=== PATIENT | male | born 1955 | race Caucasian/White ===

== ENCOUNTER → 2018-05-17 | Outpatient (CLI) | payer BC ==
[2018-05-17 15:49] LABS: URIC ACID 7.5 MG/DL (2.6-7.2)
--- NOTE | 2018-05-17 16:02 | Diagnostic Imaging Report ---
INDICATION: Arthritis in the hands and wrists. TIME OF EXAMINATION: 03:53 p.m. EXAMINATION: Multiple views of bilateral hands and wrists were obtained. FINDINGS: The distal radius and ulna are intact bilaterally. Carpal bones appear to be intact. There are some degenerative changes at the first MCP joints bilaterally. The second through fifth MCP joints are unremarkable. Proximal interphalangeal joints also appear to be fairly well-maintained bilaterally. There are some osteoarthritic changes involving numerous DIP joints of the phalanges with joint space narrowing and marginal spurring. No definite osseous erosive changes are seen. No significant soft tissue swelling is identified. No soft tissue calcification is identified. 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 No definite erosive changes to suggest an inflammatory arthritides is seen. Dictated by: Dictated on workstation # [id number]
[2018-05-18 07:10] LABS: HEPATITIS C ANTIBODY C Non-Reactive (Non-Reactive)
== END ==
LOC: RAD 14:52
PROVIDERS: ATTEND Internal Medicine Rheumatology
DX: M19.032 Primary osteoarthritis, left wrist (principal); M19.031 Primary osteoarthritis, right wrist; M19.042 Primary osteoarthritis, left hand; M19.041 Primary osteoarthritis, right hand
CPT/HCPCS: 36415; 84550; 85652; 86141; 86480; 86704; 86706; 86803; 87340

== ENCOUNTER → 2018-06-14 | Outpatient (CLI) | payer BC ==
--- NOTE | 2018-06-14 14:54 | Diagnostic Imaging Report ---
INDICATION: Neck pain. TIME OF EXAM: 2:49 PM FINDINGS: AP, lateral and odontoid views of the cervical spine were obtained. Curvature of the cervical spine is normal. Minimal retrolisthesis of C2 on C3 is seen. There is anterior spurring of C6-7 level. Disc spaces are fairly well-maintained. Prevertebral tissues are normal. Odontoid is intact. No fractures are identified. IMPRESSION: Mild cervical spondylosis. No acute bony abnormality is detected. Dictated by: Dictated on workstation # [id number]
== END ==
LOC: RAD 14:11
PROVIDERS: ATTEND Internal Medicine Rheumatology
DX: M47.22 Other spondylosis with radiculopathy, cervical region (principal)
CPT/HCPCS: 72040

== ENCOUNTER → 2018-08-16 | Outpatient (CLI) | payer BC ==
[~2018-08-16] MED LIST: ASPI-586 PO; CHOL200085 PO; LISI40TA PO; OMEG-160 PO; PRD10T PO; TURM538C PO
[2018-08-16 12:09] LABS: BASOPHILS % (AUTO) 0 % (0-10); EOSINOPHILS % (AUTO) 0 % (0-10); HEMATOCRIT 44 % (40-54); HEMOGLOBIN 14.5 G/DL (13.3-17.7); LYMPHOCYTES # (AUTO) 0.8 X 10^3 (1.0-4.0); LYMPHOCYTES % (AUTO) 5 % (12-44); MEAN CORPUSCULAR HEMOGLOBIN 31 PG (25-34); MEAN CORPUSCULAR HGB CONC 33 G/DL (32-36); MEAN CORPUSCULAR VOLUME 94 FL (80-99); MEAN PLATELET VOLUME 10.1 FL (7.4-10.4); MONOCYTES # (AUTO) 1.2 X 10^3 (0.0-1.0); MONOCYTES % (AUTO) 8 % (0-12); NEUTROPHILS # (AUTO) 13.1 X 10^3 (1.8-7.8); NEUTROPHILS % (AUTO) 87 % (42-75); PLATELET COUNT 235 10^3/uL (130-400); RED BLOOD COUNT 4.66 10^6/uL (4.35-5.85); RED CELL DISTRIBUTION WIDTH 13.2 % (10.0-14.5)
[2018-08-16 12:28] LABS: ALANINE AMINOTRANSFERASE 20 U/L (0-55); ALBUMIN 4.8 GM/DL (3.2-4.5); ALKALINE PHOSPHATASE 50 U/L (40-136); AMYLASE 67 U/L (25-125); BILIRUBIN,TOTAL 0.6 MG/DL (0.1-1.0); BUN/CREATININE RATIO 17; CALCIUM 10.1 MG/DL (8.5-10.1); CARBON DIOXIDE 28 MMOL/L (21-32); CHLORIDE 99 MMOL/L (98-107); CREATININE SERUM 1.13 MG/DL (0.60-1.30); GFR ESTIMATED > 60; GLUCOSE 114 MG/DL (70-105); LIPASE 21 U/L (8-78); POTASSIUM 4.4 MMOL/L (3.6-5.0); SODIUM 136 MMOL/L (135-145); TOTAL PROTEIN 7.3 GM/DL (6.4-8.2)
[2018-08-16 12:59] LABS: BASOPHILS % (MANUAL) 1 %; EOSINOPHILS % (MANUAL) 0 %; LYMPHOCYTES % (MANUAL) 3 %; MONOCYTES % (MANUAL) 10 %; NEUTROPHILS % (MANUAL) 78 %
[2018-08-16 13:00] LABS: BAND NEUTROPHILS 4 %; REACTIVE LYMPHOCYTES 4 %; ROULEAUX SLIGHT; TOXIC GRANULATION/VACUOLAZATIO 1+
== END ==
LOC: LAB 11:48
PROVIDERS: ATTEND Nurse Practitioner Family
DX: R31.9 Hematuria, unspecified (principal); I10 Essential (primary) hypertension; Z79.899 Other long term (current) drug therapy
CPT/HCPCS: 36415; 80053; 82150; 83690; 85007; 85027; 86141

== ENCOUNTER → 2018-08-16 | Outpatient (CLI) | payer BC ==
--- NOTE | 2018-08-16 12:30 | Diagnostic Imaging Report ---
PROCEDURE: CT urinary tract, rule out kidney stone. TECHNIQUE: Multiple contiguous axial images were obtained through the abdomen and pelvis without the use of intravenous contrast. INDICATION: Kidney calculus and difficulty urinating. COMPARISON: No prior studies are available for comparison. FINDINGS: Imaging through the lung bases does show zones of linear parenchymal density of bilateral lower lobes as well as lingula and right middle lobe consistent with atelectasis or scarring. Coronary arterial calcifications are present. No discrete liver mass is seen. The gallbladder is unremarkable. No biliary duct dilatation is seen. The pancreas and spleen are unremarkable. No adrenal mass is identified. Left kidney does show multiple renal sinus cysts but no calculi. There is a nonobstructing calculus in the right kidney measuring 5 mm. There does appear to be mild right hydroureteronephrosis. There is a tiny 1 mm calculus in the distal right ureter just above the UVJ. There is some moderate perinephric inflammatory stranding present. The aorta is non-aneurysmal. The small and large bowel loops are normal caliber. No obstruction is identified. There is no ascites. Bladder is decompressed. There appears to be fat-containing left inguinal hernia. Prostate is unremarkable. IMPRESSION: 1. Bibasilar atelectasis or scarring. 2. 5 mm nonobstructing right renal calculus. There is also a 1 mm distal right ureteric calculus producing [id number] hydroureteronephrosis and perinephric inflammatory stranding. 3. Fat-containing left inguinal hernia. Dictated by: Dictated on workstation # [id number]
== END ==
LOC: RAD 10:54
PROVIDERS: ATTEND Nurse Practitioner Family
DX: N13.2 Hydronephrosis with renal and ureteral calculous obstruction (principal); K40.90 Unilateral inguinal hernia, without obstruction or gangrene, not specified as recurrent
CPT/HCPCS: 74176

== ENCOUNTER 2018-08-21 14:55 | Outpatient (CLI) | payer BC ==
[~2018-08-21] VITALS: Ht 172.7 cm; Wt 103.4 kg
[2018-08-21] MEDS ORDERED: CHOL200085 PO (16:03)
[2018-08-21] MEDS ORDERED: TURM538C PO (16:03)
[2018-08-21] MEDS ORDERED: LISI40TA PO (16:03)
[2018-08-21] MEDS ORDERED: PRD10T PO (16:03)
[2018-08-21] MEDS ORDERED: OMEG-160 PO (16:03)
[2018-08-21] MEDS ORDERED: ASPI-586 PO (16:03)
[2018-08-22] MEDS ORDERED: TAMS0.4C2 PO (09:59)
[2018-08-22] MEDS ORDERED: CIPR-226 PO (09:59)
[2018-08-22] MEDS ORDERED: TAMS0.4C98 PO (14:11)
[2018-08-22] MEDS ORDERED: PHEN-640 PO (14:11)
[2018-08-22] MEDS ORDERED: HYDR-3870 PO (14:11)
== END 2018-08-21 16:09 | disposition home or self-care (01) ==
LOC: PREOP 14:55
PROVIDERS: ATTEND Urology
DX: Z01.818 Encounter for other preprocedural examination (principal)

== ENCOUNTER → 2018-08-21 | Outpatient (CLI) | payer BC ==
[~2018-08-21] MED LIST changes: +CIPR-226 PO; +HYDR-3870 PO; +PHEN-640 PO; +TAMS0.4C2 PO; +TAMS0.4C98 PO
--- NOTE | 2018-08-21 15:37 | Diagnostic Imaging Report ---
INDICATION: Nephrolithiasis EXAM: KUB at 1:06 PM FINDINGS: Bowel gas pattern is normal. There are no pathologic masses or calcifications seen. IMPRESSION: Negative abdomen. Dictated by: Dictated on workstation # [id number]
== END ==
LOC: RAD 12:35
PROVIDERS: ATTEND Urology
DX: N20.2 Calculus of kidney with calculus of ureter (principal)
CPT/HCPCS: 74018

== ENCOUNTER 2018-08-22 08:39 | Day surgery (SDC) | payer BC ==
[~2018-08-22] VITALS: Ht 172.7 cm; Wt 100.7 kg
[~2018-08-22 08:39] MED LIST changes: -CIPR-226 PO; -HYDR-3870 PO; -PHEN-640 PO; -TAMS0.4C2 PO; -TAMS0.4C98 PO
--- NOTE | 2018-08-22 08:59 | Diagnostic Imaging Report ---
Indication: Nephrolithiasis KUB 9:18 AM Is 4 mm ossification projecting over the distal right ureter. There is a 6 cm opacity projecting over the pelvis that could be a large bladder calculus. Bowel gas pattern is normal Impression: Possible right ureterolithiasis and bladder calculus. Dictated by: Dictated on workstation # [id number]
[2018-08-22 09:00] VITALS: BP 135/86
[2018-08-22] MEDS ORDERED: cefTRIAXone FOR IV USE 1,000 MG in NS (IVPB) 50 ML IV ONE (09:00)
--- NOTE | 2018-08-22 09:03 | Progress Note-Pre Operative ---
Pre-Operative Progress Note H&P Reviewed The H&P was reviewed, patient examined and no changes noted. Date Seen by Provider: Aug 22, 2018 Time Seen by Provider: 09:03 Date H&P Reviewed: Aug 22, 2018 Time H&P Reviewed: 09:03 Pre-Operative Diagnosis: RT URETERAL AND RT RENAL STONES ANNEMARIE MADISON MD Aug 22, 2018 9:03 am
[2018-08-22] MEDS: LACTATED RINGERS 1,000 ML IV PRN ×2 (09:25→11:40)
[2018-08-22] MEDS ORDERED: CATHETER FLUSH 10 ML SYR IV PRN (09:30)
[2018-08-22] MEDS ORDERED: TAMS0.4C2 PO (09:59)
[2018-08-22] MEDS ORDERED: CIPR-226 PO (09:59)
[2018-08-22] MEDS ORDERED: ONDANSETRON 4 MG/2 ML (SDV) Z0FRAN ONE (11:01)
[2018-08-22] MEDS ORDERED: fentaNYL INJECTION 100 MCG/2 ML AMP ONE (11:01)
[2018-08-22] MEDS ORDERED: LIDOCAINE PF 2% 5 ML (XYLOCAINE) VIAL ONE (11:01)
[2018-08-22] MEDS ORDERED: MIDAZOLAM 2 MG/2 ML (VERSED) VIAL ONE (11:01)
[2018-08-22] MEDS ORDERED: proPOfol 200 MG/20 ML (DIPRIVAN) VIAL IV ONE (11:01)
[2018-08-22] MEDS ORDERED: SEVOFLURANE (ULTANE) 15 ML INHAL SOLN ONE ×7 (11:02→12:42)
[2018-08-22] MEDS ORDERED: DEXAMETHASONE 10 MG/ML (DECADRON) 1 ML VIAL ONE (11:02)
--- NOTE | 2018-08-22 11:14 | Progress Note-Post Operative ---
Post-Operative Progess Note Surgeon (s)/Radio News Writer (s) Surgeon ANNEMARIE MADISON MD Radio News Writer: NONE Pre-Operative Diagnosis RT URETERAL AND RT RENAL STONES Post-Operative Diagnosis SAME Procedure & Operative Findings Date of Procedure 08/22/18 Procedure Performed/Findings ATTEMPTED RT URETEROSCOPY AND RT ESWL Anesthesia Type GENERAL Estimated Blood Loss Estimated blood loss (mL): NONE Specimens/Packing Specimens Removed NONE Packing: NONE ANNEMARIE MADISON MD Aug 22, 2018 11:14 am
--- NOTE | 2018-08-22 11:15 | Discharge Inst-Urology ---
Discharge Inst-Urology Discharge Medications New, Converted, or Re-newed RX: RX on Chart Patient Instructions/Follow Up Plan Please make appointment to been seen in office in 2 weeks. KUB prior to it KUB on way home Post ESWL instructions Increase oral fluids for 48 hours and then as needed. Diet and Activity as tolerated. If questions or concerns contact your physician Or seek help at emergency department. ANNEMARIE MADISON MD Aug 22, 2018 11:15 am
[2018-08-22] MEDS ORDERED: ROCURONIUM 10 MG/ML 5 ML SYRINGE IV ONE (11:36)
[2018-08-22] MEDS ORDERED: PHENYLEPHRINE 100 MCG/ML 10 ML (ANESTHESIA) SYR ONE (11:45)
[2018-08-22] MEDS ORDERED: GLYCOPYRROLATE 0.2 MG/ML (ROBINUL) 2 ML VIAL ONE (12:12)
[2018-08-22] MEDS ORDERED: NEOSTIGMINE 1 MG/ML 5 ML SYRINGE ONE (12:12)
[2018-08-22] MEDS ORDERED: KETOROLAC 30 MG/ML VIAL ONE (12:50)
[2018-08-22] MEDS ORDERED: morphine INJ 10 MG/ML 1ML (SYR OR VIAL) ONE (12:50)
[2018-08-22] MEDS ORDERED: FUROSEMIDE 40 MG/4 ML INJ (LASIX) ONE (12:50)
[2018-08-22] MEDS ORDERED: MEPERIDINE (DEMEROL) INJ 50 MG/ML IVP ONE (13:00)
[2018-08-22] MEDS ORDERED: morphine INJ 10 MG/ML 1ML (SYR OR VIAL) IVP ONE (13:00)
[2018-08-22] MEDS ORDERED: ONDANSETRON 4 MG/2 ML (SDV) Z0FRAN IVP PRN (13:00)
[2018-08-22 13:30] VITALS: BP 140/69
[2018-08-22 14:00] VITALS: BP 123/74
[2018-08-22] MEDS ORDERED: PHEN-640 PO (14:11)
[2018-08-22] MEDS ORDERED: HYDR-3870 PO (14:11)
[2018-08-22] MEDS ORDERED: TAMS0.4C98 PO (14:11)
[2018-08-22 14:30] VITALS: BP 129/79
[2018-08-22 14:55] VITALS: BP 129/79
--- NOTE | 2018-08-22 16:50 | Diagnostic Imaging Report ---
Indication: Nephrolithiasis Post lithotripsy image shows a 4 mm calcification projecting over the right sacral ala. The previously seen large opacity in the mid pelvis is no longer evident. Impression: Large round calcification in the pelvis is not present. There is a 4 mm calcification projecting over the right sacral ala, unchanged. Dictated by: Dictated on workstation # [id number]
--- NOTE | 2018-08-22 22:44 | OPERATIVE REPORT ---
DATE OF SERVICE: 08/22/2018 PREOPERATIVE DIAGNOSES: Right distal ureteral and renal stone. POSTOPERATIVE DIAGNOSES: Right distal ureteral and renal stone. OPERATION PERFORMED: Attempted right ureteroscopy and right ESWL. SURGEON: Abhijeet Madison MD. ANESTHESIA: General. COMPLICATIONS: None. DESCRIPTION OF PROCEDURE: Under satisfactory general anesthesia, the patient in lithotomy position, genitalia were prepped and draped in usual sterile fashion. Cystoscope was introduced under vision. The anterior urethra was normal. The prostate was mildly enlarged with mild bladder neck obstruction. Bladder was entered, revealed mild trabeculation. Ureteric orifices normal in shape, size and configuration with clear efflux sluggish on the right side. Using the fore oblique lens, I dilated the right ureteral orifice intramural portion to the level of the stone. I attempted to pass ureteroscope semi-rigid 6.9 [place]; however, it was found to be defective lens and bad visibility. The other scopes were not sterile being used earlier in the day and not re sterilized, so we terminated the procedure and move the patient to the ESWL table in supine. The stone was localized and shocks were delivered at kV of 6. A total of 3500 shocks completely fragmented the stone, which was faint and layered. The patient received 40 mg of Lasix and 30 mg of Toradol IV at the end of the procedure. He tolerated the procedure and anesthesia well and was sent to recovery room in stable condition. Procedure was fu;;y explained to and later on to the patient Job ID: [id number] DocumentID: [id number] Dictated Date: 08/22/2018 12:38:43 Battery Plate Assembler Date: 08/22/2018 22:44:22 Dictated By: ABHIJEET MADISON MD [facility]
== END 2018-08-22 14:55 | disposition home or self-care (01) ==
LOC: SDC 08:39
PROVIDERS: ATTEND Urology
DX: N20.2 Calculus of kidney with calculus of ureter (principal); I10 Essential (primary) hypertension; G47.33 Obstructive sleep apnea (adult) (pediatric); E66.9 Obesity, unspecified; Z68.33 Body mass index [BMI] 33.0-33.9, adult; Z79.82 Long term (current) use of aspirin; Z79.52 Long term (current) use of systemic steroids; Z79.899 Other long term (current) drug therapy
CPT/HCPCS: 74018; 87081

== ENCOUNTER 2018-08-24 17:31 | Emergency (ER) | payer BC ==
[~2018-08-24] VITALS: Ht 172.7 cm; Wt 103.4 kg
[~2018-08-24 17:31] MED LIST changes: +CIPR-226 PO; +HYDR-3870 PO; +PHEN-640 PO; +TAMS0.4C2 PO; +TAMS0.4C98 PO
[2018-08-24] MEDS ORDERED: NS IV 1000 ML 1,000 ML IV ONE (17:35)
[2018-08-24] MEDS ORDERED: KETOROLAC 30 MG/ML VIAL IVP ONE (17:45)
[2018-08-24 18:25] LABS: BASOPHILS % (AUTO) 0 % (0-10); EOSINOPHILS % (AUTO) 0 % (0-10); HEMATOCRIT 37 % (40-54); HEMOGLOBIN 12.7 G/DL (13.3-17.7); LYMPHOCYTES # (AUTO) 0.9 X 10^3 (1.0-4.0); LYMPHOCYTES % (AUTO) 8 % (12-44); MEAN CORPUSCULAR HEMOGLOBIN 32 PG (25-34); MEAN CORPUSCULAR HGB CONC 35 G/DL (32-36); MEAN CORPUSCULAR VOLUME 93 FL (80-99); MEAN PLATELET VOLUME 10.1 FL (7.4-10.4); MONOCYTES # (AUTO) 1.2 X 10^3 (0.0-1.0); MONOCYTES % (AUTO) 11 % (0-12); NEUTROPHILS % (AUTO) 81 % (42-75); PLATELET COUNT 220 10^3/uL (130-400); RED BLOOD COUNT 3.94 10^6/uL (4.35-5.85); RED CELL DISTRIBUTION WIDTH 12.3 % (10.0-14.5); WHITE BLOOD COUNT 11.1 10^3/uL (4.3-11.0)
[2018-08-24] MEDS ORDERED: fentaNYL INJECTION 100 MCG/2 ML AMP IVP STA (18:36)
[2018-08-24 18:46] LABS: ALBUMIN 4.1 GM/DL (3.2-4.5); BILIRUBIN,TOTAL 0.4 MG/DL (0.1-1.0); CALCIUM 9.2 MG/DL (8.5-10.1); CREATININE SERUM 1.52 MG/DL (0.60-1.30); POTASSIUM 4.5 MMOL/L (3.6-5.0); TOTAL PROTEIN 6.6 GM/DL (6.4-8.2)
[2018-08-24 18:50] LABS: BILIRUBIN,URINE NEGATIVE (NEGATIVE); CLARITY,URINE CLEAR; COLOR,URINE YELLOW; GLUCOSE, URINE (UA) NEGATIVE (NEGATIVE); KETONES,URINE NEGATIVE (NEGATIVE); LEUKOCYTE ESTERASE ,URINE 1+ (NEGATIVE); NITRITE,URINE NEGATIVE (NEGATIVE); PH,URINE 7 (5-9); PROTEIN,URINE NEGATIVE (NEGATIVE); UROBILINOGEN,URINE NORMAL (NORMAL)
[2018-08-24 18:55] LABS: BACTERIA,URINE NEGATIVE /HPF; WBC,URINE 0-2 /HPF
--- NOTE | 2018-08-24 19:01 | ED GU-Male ---
General Chief Complaint: Abdominal/GI Problems Stated Complaint: HAD SURGERY FOR KIDNEY STONE FRI, EXTREME PAIN Nursing Triage Note: PT HAD LITHOTRIPSY SURG. THIS TUESDAY. TODAY PRESENTS TO THE ED WITH 10/10 PAIN IN THE RLQ WITH POOR URINE OUTPUT, STREAM DESCRIBED DRIBBLING AND CAUSING PAIN WITH A BURNING SENSATION Source: patient Exam Limitations: no limitations History of Present Illness Date Seen by Provider: Aug 24, 2018 Time Seen by Provider: 18:05 Initial Comments She was right flank pain and not being able to urinate today. Had lithotripsy 2 days ago for right renal stone. Was doing better. Did take a hydrocodone early this morning and without pain relief. States that he's been drinking well but not urinating much. He describes his urine is frequent with only small amounts and hurts each time. The flank pain is getting a little worse now. He is worried that he is instructed and not able to pass the stone. He has passed stone fragments and has collected those in a container. Reportedly had fever earlier this morning. Not currently on antibiotics. Timing/Duration: yesterday, getting worse Severity/Quality: moderate, aching, cramping Location: right flank Radiation: suprapubic Activities at Onset: none Modifying Factors: Improves With Analgesics; Worsens With Urinating Associated Symptoms: abdominal pain, dysuria, fever/chills; No nausea/vomiting ; urinary frequency Allergies and Home Medications Allergies Coded Allergies: No Known Drug Allergies (Unverified , 08/21/18) Home Medications Cholecalciferol (Vitamin D3) 2,000 Unit Tablet, 2,000 UNIT PO DAILY, (Reported) Ciprofloxacin HCl 250 Mg Tablet, 250 MG PO BID, (Reported) Hydrocodone/Acetaminophen 1 Each Tablet, 1-2 EACH PO Q6H PRN for PAIN-MODERATE Prescribed by: MARNI COURTNEY on 08/22/18 1411 Lisinopril 40 Mg Tablet, 40 MG PO DAILY, (Reported) [place]-3/Dha/Epa/Fish Oil 1 Each Capsule, 1 EACH PO DAILY, (Reported) Phenazopyridine HCl 200 Mg Tablet, 1 TAB PO TID Prescribed by: MARNI COURTNEY on 08/22/18 1411 Prednisone 10 Mg Tab, 9 MG PO DAILY, (Reported) Tamsulosin HCl 0.4 Mg Cap.er.24h, 0.4 MG PO DAILY, (Reported) Tamsulosin HCl 0.4 Mg Cap, 0.4 MG PO DAILY Prescribed by: MARNI COURTNEY on 08/22/18 1411 Turmeric Root Extract 538 Mg Capsule, 538 MG PO DAILY, (Reported) Patient Home Medication List Home Medication List Reviewed: Yes Review of Systems Review of Systems Constitutional: see HPI EENTM: no symptoms reported Respiratory: No cough, No short of breath Cardiovascular: No chest pain, No edema Gastrointestinal: abdominal pain; No nausea, No vomiting Genitourinary: see HPI Musculoskeletal: no symptoms reported Skin: no symptoms reported All Other Systemes Reviewed Negative Unless Noted: Yes Past Daderar-Ybsxsv-Bppdgv Hx Past Med/Social Hx: Reviewed Nursing Past Med/Soc Hx Patient Social History Alcohol Use: Occasionally Uses Recreational Drug Use: No Smoking Status: Never a Smoker Recent Foreign Travel: No Contact w/Someone Who Travel: No Recent Infectious Disease Expo: No Recent Hopitalizations: No Seasonal Allergies Seasonal Allergies: No Past Medical History Surgeries: Yes (KNEE SCOPE, UMBILICAL HERNIA X2) Respiratory: Yes Sleep Apnea Currently Using CPAP: Yes Cardiac: Yes Hypertension Neurological: No Reproductive Disorders: No Sexually Transmitted Disease: No HIV/AIDS: No Genitourinary: Yes (HAD STONE BLASTED 08/22/18) Kidney Stones Gastrointestinal: No Musculoskeletal: Yes Arthritis Endocrine: No HEENT: No Loss of Vision: Bilateral Hearing Impairment: Denies Cancer: No Psychosocial: No Integumentary: No Blood Disorders: No Adverse Reaction/Blood Tranf: No (N/A) Family Medical History Reviewed Nursing Family Hx Physical Exam Vital Signs Vital Signs - First Documented 08/24/18 08/24/18 18:01 19:30 Temp 98.5 Pulse 74 Resp 20 B/P (MAP) 192/104 (133) Pulse Ox 95 O2 Delivery Room Air O2 Flow Rate 2.00 Capillary Refill : Less Than 3 Seconds Height, Weight, BMI Height: 5'8.00" Weight: 228lbs. 0.0oz. 103.274082ts; 33.8 BMI Method:Stated General Appearance: WD/WN, no apparent distress HEENT: PERRL/EOMI, pharynx normal Neck: full range of motion, supple Cardiovascular: no murmur, tachycardia Respiratory: lungs clear, normal breath sounds Gastrointestinal: soft; No guarding, No rebound; tenderness (mild right flank) Back: normal inspection, no CVA tenderness, no vertebral tenderness Extremities: non-tender, normal inspection Neurologic/Psychiatric: alert, oriented x 3 Skin: normal color, warm/dry Focused Exam Lactate Level 08/24/18 18:29: Lactic Acid Level 0.83 Lactic Acid Level Laboratory Tests Test 08/24/18 18:29 Lactic Acid Level 0.83 MMOL/L (0.50-2.00) Progress/Results/Core Measures Suspected Sepsis Recent Fever Within 48 Hours: No Infection Criteria Present: Suspected New Infection New/Unexplained Altered Menta: No Sepsis Screen: No Definite Risk SIRS Temperature: Pulse: 74 Respiratory Rate: 20 Laboratory Tests 08/24/18 18:19: White Blood Count 11.1H Blood Pressure 192 /104 Mean: 133 08/24/18 18:29: Lactic Acid Level 0.83 Laboratory Tests 08/24/18 18:19: Creatinine 1.52H, Platelet Count 220, Total Bilirubin 0.4 Results/Orders Lab Results Laboratory Tests Test 08/24/18 18:19 08/24/18 18:29 08/24/18 18:42 Range/Units White Blood Count 11.1 H 4.3-11.0 10^3/uL Red Blood Count 3.94 L 4.35-5.85 10^6/uL Hemoglobin 12.7 L 13.3-17.7 G/DL Hematocrit 37 L 40-54 % Mean Corpuscular Volume 93 80-99 FL Mean Corpuscular Hemoglobin 32 25-34 PG Mean Corpuscular Hemoglobin Concent 35 32-36 G/DL Red Cell Distribution Width 12.3 10.0-14.5 % Platelet Count 220 130-400 10^3/uL Mean Platelet Volume 10.1 7.4-10.4 FL Neutrophils (%) (Auto) 81 H 42-75 % Lymphocytes (%) (Auto) 8 L 12-44 % Monocytes (%) (Auto) 11 0-12 % Eosinophils (%) (Auto) 0 0-10 % Basophils (%) (Auto) 0 0-10 % Neutrophils # (Auto) 9.0 H 1.8-7.8 X 10^3 Lymphocytes # (Auto) 0.9 L 1.0-4.0 X 10^3 Monocytes # (Auto) 1.2 H 0.0-1.0 X 10^3 Eosinophils # (Auto) 0.0 0.0-0.3 10^3/uL Basophils # (Auto) 0.0 0.0-0.1 10^3/uL Sodium Level 132 L 135-145 MMOL/L Potassium Level 4.5 3.6-5.0 MMOL/L Chloride Level 97 L 98-107 MMOL/L Carbon Dioxide Level 23 21-32 MMOL/L Anion Gap 12 5-14 MMOL/L Blood Urea Nitrogen 37 H 7-18 MG/DL Creatinine 1.52 H 0.60-1.30 MG/DL Estimat Glomerular Filtration Rate 47 BUN/Creatinine Ratio 24 Glucose Level 112 H 70-105 MG/DL Calcium Level 9.2 8.5-10.1 MG/DL Corrected Calcium 9.1 8.5-10.1 MG/DL Total Bilirubin 0.4 0.1-1.0 MG/DL Aspartate Amino Transf (AST/SGOT) 11 5-34 U/L Alanine Aminotransferase (ALT/SGPT) 16 0-55 U/L Alkaline Phosphatase 55 40-136 U/L Total Protein 6.6 6.4-8.2 GM/DL Albumin 4.1 3.2-4.5 GM/DL Lactic Acid Level 0.83 0.50-2.00 MMOL/L Urine Color YELLOW Urine Clarity CLEAR Urine pH 7 5-9 Urine Specific [place] 1.010 L 1.016-1.022 Urine Protein NEGATIVE NEGATIVE Urine Glucose (UA) NEGATIVE NEGATIVE Urine Ketones NEGATIVE NEGATIVE Urine Nitrite NEGATIVE NEGATIVE Urine Bilirubin NEGATIVE NEGATIVE Urine Urobilinogen NORMAL NORMAL MG/DL Urine Leukocyte Esterase 1+ H NEGATIVE Urine RBC (Auto) 4+ H NEGATIVE Urine RBC 10-25 H /HPF Urine WBC 0-2 /HPF Urine Squamous Epithelial Cells NONE /HPF Urine Crystals NONE /LPF Urine Bacteria NEGATIVE /HPF Urine Casts NONE /LPF Urine Mucus NEGATIVE /LPF Urine Culture Indicated NO My Orders Orders - IFTIKHAR SCHMITT MD Lactic Acid Analyzer (08/24/18 18:22) Blood Culture (08/24/18 18:22) Fentanyl Injection (Sublimaze Injection (08/24/18 18:36) Ct Abd/Pelvis Wo(Kidney Stone) (08/24/18 18:54) Medications Given in ED Current Medications Medications Dose Ordered Sig/Roberto Route Start Time Stop Time Status Last Admin Dose Admin Ketorolac Tromethamine 15 mg ONCE ONCE IVP 08/24/18 17:45 08/24/18 17:46 DC 08/24/18 19:07 15 MG Sodium Chloride 1,000 ml @ 0 mls/hr Q0M ONCE IV 08/24/18 17:35 08/24/18 17:38 DC 08/24/18 19:07 1,000 MLS/HR Vital Signs/I&O 08/24/18 08/24/18 18:01 19:30 Temp 98.5 Pulse 74 73 Resp 20 20 B/P (MAP) 192/104 (133) 132/81 Pulse Ox 95 94 O2 Delivery Room Air Nasal Cannula O2 Flow Rate 2.00 Capillary Refill : Less Than 3 Seconds Blood Pressure Mean: 133 Progress Note : Progress Note Seen and evaluated. IV, labs, UA, blood cultures and lactic acid ordered. Normal saline 1 L bolus. Toradol 30 mg IV and fentanyl 50 g IV ordered. Monitor patient. 1854: White count elevated and still has pain. CT abdomen and pelvis kidney stone protocol ordered. Monitor patient. 1999: Patient CT is complete and pain is resolved. He is urinating well and moving back and forth to the bathroom. 2039: I did discuss the case with Dr. Madison. We will continue current management patient is to call his office on Tuesday. I did talk with the patient at length about pain control and importance of encouraging plenty of fluids. Patient reports that he will do that. Discharged home with return precautions. Patient verbalize understanding instructions and agreement with plan. Diagnostic Imaging Diagonstic Imaging: CT Plain Films/CT/US/NM/MRI: abdomen, pelvis Comments VIA [facility]. [place], [place] NAME: BEBO MACIAS [facility] REC#: [id number] PT STATUS: REG ER : 1955 PHYSICIAN: IFTIKHAR SCHMITT MD ADMIT DATE: 08/24/18/ER Draft Date of Exam:08/24/18 CT ABD/PELVIS WO(KIDNEY STONE) INDICATION: Right flank pain since Tuesday. History of stones. EXAMINATION: CT abdomen and pelvis without contrast, 08/24/2018. COMPARISON: 08/16/2018. FINDINGS: There is moderate to severe right hydroureteronephrosis. Fat stranding courses along the right ureter. In the pelvis, there is a 6.5 mm stone in the distal right ureter proximal to the UVJ. Air is seen in the urinary bladder which could be iatrogenic, correlate clinically, or due to cystitis. No stone is noted in the left ureter; however, there are multiple bilateral parapelvic cysts suspected. There is no nephrolithiasis. The nonopacified remaining abdominal viscera are limited but no gross acute abnormality appreciated involving the liver or spleen. Gallbladder and adrenal glands as well as pancreas are unremarkable. No free air is appreciated. No significant free fluid. Bilateral inguinal hernias containing fat are also noted. Osseous structures are intact. Degenerative findings throughout the lower lumbar region. The lung bases demonstrate linear atelectatic change at the right lung base. This is similar to previous imaging and followup recommended to assure resolution. IMPRESSION: 1. Previously noted right renal stone has now extended into the right distal ureter but proximal to the UVJ causing moderate to severe right ureteral hydronephrosis with right hydroureteronephrosis. 2. Other findings as above. This includes air in the urinary bladder, correlate for any iatrogenic process, otherwise, cystitis would be possible. Dictated on workstation # [id number] Dict: 08/24/181933 Trans: 08/24/182003 [facility] [id number] Interpreted by: AILYN PHAM MD Electronically signed by: Departure Impression Primary Impression: RIGHT DISTAL URETERAL STONE Disposition: 01 HOME, SELF-CARE Condition: Improved Departure-Patient Inst. Decision time for Depature: 20:40 Referrals: NO,LOCAL PHYSICIAN (PCP/Family) Primary Care Physician Patient Instructions: Kidney Stones (DC) Add. Discharge Instructions: All discharge instructions reviewed with patient and/or family. Voiced understanding. Is very important that he drink plenty of fluids and it is okay to drink caffeinated beverages to help keep urine flow going. You may take ibuprofen 400 mg every 8 hours as needed for pain as well. It is okay to take her pain medication as prescribed. Start antibiotics tomorrow. Call Dr. Madison on Tuesday morning. Continue to strain your urine. Return for worse pain, fever, vomiting, weakness, breathing problems or other concerns as needed. Scripts Hydrocodone Bit/Acetaminophen (LORTAB 7.5 MG TABLET) 1 Ea Tablet 1 EACH PO Q4H PRN for PAIN-MODERATE, #14 TAB 0 Refills Prov: [place],IFTIKHAR D MD 08/24/18 Cephalexin (Cephalexin) 500 Mg Tablet 500 MG PO BID, #14 TAB 0 Refills Prov: IFTIKHAR SCHMITT MD 08/24/18 Copy Copies To 1: ANNEMARIE MADISON MD, TIMOTHY D MD Aug 24, 2018 19:01
--- NOTE | 2018-08-24 20:04 | Diagnostic Imaging Report ---
INDICATION: Right flank pain since Tuesday. History of stones. EXAMINATION: CT abdomen and pelvis without contrast, 08/24/2018. COMPARISON: 08/16/2018. FINDINGS: There is moderate to severe right hydroureteronephrosis. Fat stranding courses along the right ureter. In the pelvis, there is a 6.5 mm stone in the distal right ureter proximal to the UVJ. Air is seen in the urinary bladder which could be iatrogenic, correlate clinically, or due to cystitis. No stone is noted in the left ureter; however, there are multiple bilateral parapelvic cysts suspected. There is no nephrolithiasis. The nonopacified remaining abdominal viscera are limited but no gross acute abnormality appreciated involving the liver or spleen. Gallbladder and adrenal glands as well as pancreas are unremarkable. No free air is appreciated. No significant free fluid. Bilateral inguinal hernias containing fat are also noted. Osseous structures are intact. Degenerative findings throughout the lower lumbar region. The lung bases demonstrate linear atelectatic change at the right lung base. This is similar to previous imaging and followup recommended to assure resolution. IMPRESSION: 1. Previously noted right renal stone has now extended into the right distal ureter but proximal to the UVJ causing moderate to severe right ureteral hydronephrosis with right hydroureteronephrosis. 2. Other findings as above. This includes air in the urinary bladder, correlate for any iatrogenic process, otherwise, cystitis would be possible. Dictated by: Dictated on workstation # [id number]
[2018-08-24] MEDS ORDERED: CEPH500T PO (20:45)
[2018-08-24] MEDS ORDERED: HYDR-34 PO (20:45)
[2018-08-24 20:55] VITALS: BP 129/62
== END 2018-08-24 19:49 | disposition short-term general hospital (02) ==
LOC: EDUNIT# 17:31 → ER 17:33
DX: N13.2 Hydronephrosis with renal and ureteral calculous obstruction (principal); G47.30 Sleep apnea, unspecified; I10 Essential (primary) hypertension; Z98.890 Other specified postprocedural states; Z79.52 Long term (current) use of systemic steroids; Z87.19 Personal history of other diseases of the digestive system
CPT/HCPCS: 36415; 74176; 80053; 81000; 83605; 85025; 87040

== ENCOUNTER 2018-09-05 14:29 | Outpatient (RCR) | payer BC ==
[~2018-09-05 14:29] MED LIST changes: +CHOL200014 PO; -CHOL200085 PO
== END 2018-12-04 | disposition home or self-care (01) ==
LOC: LAB 14:29
PROVIDERS: ATTEND Urology
DX: N20.9 Urinary calculus, unspecified (principal)
CPT/HCPCS: 36415; 82140; 82340; 82507; 82570; 83735; 83945; 83986; 84105; 84133; 84300; 84392; 84560; 88300

== ENCOUNTER → 2018-09-05 | Outpatient (CLI) | payer BC ==
[~2018-09-05] MED LIST changes: +CEPH500T PO; +HYDR-34 PO
--- NOTE | 2018-09-05 18:20 | Diagnostic Imaging Report ---
INDICATION: Right ureteral stone, followup. TIME OF EXAM: 1:37 p.m. COMPARISON: Correlation is made with prior radiograph from 08/22/2018. FINDINGS: Bowel gas pattern is unremarkable. Calcific densities overlie the lower right sacrum measuring approximately 4 mm in size. There are two separate calcifications in this area on today's study. No other suspicious calcifications are seen. IMPRESSION: There are two calcific densities overlying the right lower sacrum which may be ureteral in origin. No other abnormality is detected. Dictated by: Dictated on workstation # [id number]
== END ==
LOC: RAD 13:07
PROVIDERS: ATTEND Urology
DX: N20.1 Calculus of ureter (principal)
CPT/HCPCS: 74018

== ENCOUNTER → 2019-01-16 | Outpatient (CLI) | payer BC | LOC: LAB 15:11 | PROVIDERS: ATTEND Internal Medicine Rheumatology | DX: M35.3 Polymyalgia rheumatica (principal) | CPT/HCPCS: 36415; 85652; 86141 ==

== ENCOUNTER → 2019-04-25 | Outpatient (CLI) | payer BC ==
[2019-04-26 00:16] LABS: ALBUMIN 4.5 GM/DL (3.2-4.5); BILIRUBIN,DIRECT 0.2 MG/DL (0.0-0.3); BILIRUBIN,INDIRECT 0.2 MG/DL; BILIRUBIN,TOTAL 0.4 MG/DL (0.1-1.0)
[2019-04-26 00:17] LABS: HEMATOCRIT 41 % (40-54); HEMOGLOBIN 13.9 G/DL (13.3-17.7); LYMPHOCYTES % (AUTO) 33 % (12-44); MEAN CORPUSCULAR HEMOGLOBIN 32 PG (25-34); MEAN CORPUSCULAR HGB CONC 34 G/DL (32-36); MEAN CORPUSCULAR VOLUME 95 FL (80-99); MEAN PLATELET VOLUME 10.6 FL (7.4-10.4); NEUTROPHILS % (AUTO) 54 % (42-75); PLATELET COUNT 224 10^3/uL (130-400); RED CELL DISTRIBUTION WIDTH 13.6 % (10.0-14.5); WHITE BLOOD COUNT 8.6 10^3/uL (4.3-11.0)
[2019-04-26 00:18] LABS: BASOPHILS % (AUTO) 0 % (0-10); EOSINOPHILS # (AUTO) 0.1 10^3/uL (0.0-0.3); EOSINOPHILS % (AUTO) 1 % (0-10); ERYTHROCYTE SEDIMENTATION RATE 6 MM/HR (0-30); LYMPHOCYTES # (AUTO) 2.9 X 10^3 (1.0-4.0); MONOCYTES % (AUTO) 12 % (0-12); NEUTROPHILS # (AUTO) 4.7 X 10^3 (1.8-7.8)
== END ==
LOC: LAB 22:23
PROVIDERS: ATTEND Internal Medicine Rheumatology
DX: Z79.899 Other long term (current) drug therapy (principal)
CPT/HCPCS: 36415; 80076; 85025; 85652; 86141